=== PATIENT | male | born 1970 | race Hispanic/Latino ===

== ENCOUNTER 2017-10-11 18:35 | Emergency (ER) | payer MEDICARE, OTHER ==
[2017-10-11 18:35] VITALS: BMI 44.1
[2017-10-11 18:44] VITALS: O2SAT 96
--- NOTE | 2017-10-11 19:27 | C.PDOC ---
History Of Present Illness 47yo male, presents to ER with complaints of right shoulder pain after he injured it last night. Patient states at 8PM last night, he slipped in the bath tub and injured his right shoulder. He states the pain is worse with movement; he took Advil with no significant pain relief. He offers no other medical complaints. PMD: [facility] Time Seen by Provider: 10/11/17 18:49 Chief Complaint (Nursing): Upper Extremity Problem/Injury History Per: Patient History/Exam Limitations: no limitations Onset/Duration Of Symptoms: Days (1) Current Symptoms Are (Timing): Still Present Quality: "Pain" Exacerbating Factor(s): Strenuous Use Of Affected Area, Movement Additional History Per: Patient Past Medical History Reviewed: Historical Data, Nursing Documentation, Vital Signs Vital Signs: Last Vital Signs Temp 98.1 F 10/11/17 19:36 Pulse 87 10/11/17 19:36 Resp 18 10/11/17 19:36 BP 169/101 H 10/11/17 19:36 Pulse Ox 96 10/11/17 20:51 - Medical History PMH: Arthritis, Bipolar Disorder, CAD, Depression, Diabetes (type II), HTN, Hypercholesterolemia, Kidney Stones, Chronic Kidney Disease, Sleep Apnea ( obstructive) Denies: CHF, HIV Surgical History: Coronary Stent (x 1 stent 2008), Hernia Repair (x 2) - [facility] Procedures INJECT/INFUSE NEC (09/03/14) Family History: States: No Known Family Hx, Unknown Family Hx - Social History Hx Alcohol Use: No Hx Substance Use: No - Immunization History Hx Tetanus Toxoid Vaccination: No Hx Influenza Vaccination: Yes Hx Pneumococcal Vaccination: Yes Review Of Systems Except As Marked, All Systems Reviewed And Found Negative. Cardiovascular: Negative for: Chest Pain Musculoskeletal: Positive for: Shoulder Pain (right) Neurological: Negative for: Weakness, Numbness, Other (head injury) Physical Exam - Physical Exam Appears: Non-toxic, No Acute Distress Skin: Normal Color, Warm, Dry Head: Atraumatic, Normacephalic Eye(s): bilateral: Normal Inspection, PERRL, EOMI Neck: Normal ROM, Supple Chest: Symmetrical Cardiovascular: Rhythm Regular Respiratory: Normal Breath Sounds Extremity: No Normal ROM (decreased ROM of right shoulder due to pain; pain with abduction of right shoulder), Tenderness (tenderness to right lateral shoulder), No Deformity Neurological/Psych: Oriented x3 ED Course And Treatment O2 Sat by Pulse Oximetry: 96 (RA) Pulse Ox Interpretation: Normal Medical Decision Making Medical Decision Making: Impression: Right shoulder injury Plan: -- XR Right shoulder -- Tramadol 50mg PO Progress: XR reviewed by provider, shows no fractures or dislocations. Patient placed in an arm sling and instructed to follow up with PMD in 2-3 days. Disposition Counseled Patient/Family Regarding: Diagnosis, Need For Followup, Rx Given - Disposition Referrals: Dilshad Lucas III, MD [Staff Provider] - Disposition: HOME/ ROUTINE Disposition Time: 19:45 Condition: IMPROVED Additional Instructions: Your xray was normal, no fracture. Please apply ice to area 15 minutes three times a day. Take Motrin as needed for pain every 6 hours, with food to not upset stomach. Follow up with orthopedic if pain persists over one week. Prescriptions: Naproxen 250 mg PO Q8 #30 tablet Instructions: Shoulder Pain (DC) Forms: [employer] (Turkish) - POA Present On Arrival: Falls Or Trauma - Clinical Impression Clinical Impression: Contusion of shoulder, right - PA / [employer]PER[employer] / Resident Statement MD/DO has reviewed & agrees with the documentation as recorded. - Scribe Statement The provider has reviewed the documentation as recorded by the Scribe (Vika Deng) Provider Attestation: All medical record entries made by the Scribe were at my direction and personally dictated by me. I have reviewed the chart and agree that the record accurately reflects my personal performance of the history, physical exam, medical decision making, and the department course for this patient. I have also personally directed, reviewed, and agree with the discharge instructions and disposition.
[2017-10-11 19:47] VITALS: BP 169/101; PULSE 87; RESP 18; TEMP 98.1
--- NOTE | 2017-10-12 08:41 | RAD ---
PROCEDURE: Radiographs of the Right Shoulder HISTORY: PAIN S.P FALL COMPARISON: Right shoulder radiographs dated 03/29/2015 FINDINGS: BONES: No acute fracture. JOINTS: Unremarkable. SOFT TISSUES: Normal. OTHER FINDINGS: None. IMPRESSION: No demonstrated fracture or dislocation.
== END 2017-10-11 19:48 | disposition home or self-care (01) ==
LOC: C.ER 18:35
DX: S40.011A Contusion of right shoulder, initial encounter (principal); W18.2XXA Fall in (into) shower or empty bathtub, initial encounter

== ENCOUNTER 2018-07-17 12:34 | Outpatient (CLI) | payer MEDICARE | END 2018-07-17 12:35 | disposition home or self-care (01) | LOC: C.LAB 12:34 | DX: E11.29 Type 2 diabetes mellitus with other diabetic kidney complication (principal); N18.4 Chronic kidney disease, stage 4 (severe); M10.9 Gout, unspecified; Z13.9 Encounter for screening, unspecified; E78.00 Pure hypercholesterolemia, unspecified; I25.10 Atherosclerotic heart disease of native coronary artery without angina pectoris; Z12.11 Encounter for screening for malignant neoplasm of colon ==

== ENCOUNTER 2018-07-18 12:49 | Outpatient (CLI) | payer MEDICARE | END 2018-07-18 12:50 | disposition home or self-care (01) | LOC: C.LAB 12:49 | DX: Z12.11 Encounter for screening for malignant neoplasm of colon (principal); E11.29 Type 2 diabetes mellitus with other diabetic kidney complication; N18.4 Chronic kidney disease, stage 4 (severe); M10.9 Gout, unspecified; Z13.9 Encounter for screening, unspecified; E78.00 Pure hypercholesterolemia, unspecified; I25.10 Atherosclerotic heart disease of native coronary artery without angina pectoris ==

== ENCOUNTER 2018-10-02 09:33 | Outpatient (CLI) | payer MEDICARE | END 2018-10-02 09:34 | disposition home or self-care (01) | LOC: C.LAB 09:33 | DX: Z01.818 Encounter for other preprocedural examination (principal) ==

== ENCOUNTER 2018-10-12 07:28 | Outpatient (CLI) | payer MEDICARE | END 2018-10-12 07:29 | disposition home or self-care (01) | LOC: C.CARD 07:28 ==